=== PATIENT | female | born 1975 | race African-American/Black ===

== ENCOUNTER 2018-04-11 17:05 | Observation (INO) ==
[2018-04-11 17:57] LABS: BILIRUBIN,URINE NEGATIVE (NEGATIVE); BLOOD/HEMOGLOBIN,URINE 2+ (NEGATIVE); GLUCOSE, URINE NEGATIVE (NEGATIVE); KETONES,URINE NEGATIVE (NEGATIVE); LEUKOCYTE ESTERASE ,URINE NEGATIVE (NEGATIVE); NITRITES,URINE NEGATIVE (NEGATIVE); PROTEIN,URINE NEGATIVE (NEGATIVE); UROBILINOGEN,URINE NORMAL (NORMAL)
[2018-04-11 18:08] LABS: APPEARANCE,URINE CLEAR (CLEAR); COLOR,URINE YELLOW (YELLOW)
[2018-04-11 18:09] LABS: BACTERIA,URINE TRACE /HPF (NEGATIVE); SQUAMOUS EPITHELIAL CELL,UR FEW /HPF (NEGATIVE)
[2018-04-11] MEDS ORDERED: TORADOL 60 MG VIAL IM ONE (18:12)
[2018-04-11] MEDS ORDERED: TORADOL 60 MG VIAL ONE (18:14)
--- NOTE | 2018-04-11 18:42 | CT ---
HISTORY: Low back pain, vomiting Study: CT abdomen and pelvis without contrast Comparison: None Technique: Multiple axial images of the abdomen and pelvis were obtained without IV contrast. Dose reduction techniques including Automated Exposure Control (AEC) and adjustment of mA and kV were utilized. Findings: Please note evaluation is limited without use of IV contrast. The visualized lung bases are clear. The liver, spleen, pancreas, and adrenal glands are unremarkable in their unenhanced CT appearance. Gallbladder is removed. No renal calculi or obstructive uropathy identified. No free intraperitoneal air. No evidence of intestinal obstruction or inflammation. Appendix is normal. No significant free fluid is identified. The soft tissues and osseous structures are unremarkable. Limited evaluation of vascular structures due to lack of contrast. No pathologically enlarged lymph nodes are identified. Uterus is mildly enlarged heterogeneous with suggestion of hypodense areas at the fundus. This to underlying fibroids, other uterine mass, versus endometrial thickening/fluid. IMPRESSION: 1. Mildly enlarged and heterogeneous appearance of the uterus with hypodense areas of the fundus. The findings could represent underlying endometrial thickening/fluid, fibroids or other uterine abnormality. Pelvic ultrasound may provide additional characterization. Reported By:
--- NOTE | 2018-04-11 18:57 | DR.FBACK ---
HPI Time Seen Time Seen by Provider: 04/11/18 18:09 PCP Primary Care Physician: JOSE Complaint Chief Complaint:: PT C/O LOWER BACK PAIN. PT STATES SHE HAS A BAD BACK AND SHE HAS HAD THIS SIMILAR PAIN IN THE PAST WHE SHE WAS CONTSTIPATED PT STATES SHE HAS NOT HAD A BM IN 1 WEEK AND SHE HAS BEEN VOMITTING. PT STATES SHE HAS BEEN LAYING IN THE FLOOR AT HER HOUSE FOR THE PAST 4 DAYS IN SEVERE PAIN. 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 Family History History of Family Medical Conditions: Yes Family Medical History: Diabetes Mellitus, Cancer and Hypertension Social History Does patient currently use any type of tobacco product: Yes Have you used tobacco products in the last 12 months: Yes Type of Tobacco Use: Cigarettes Does any household member use tobacco: Yes Alcohol Use: Occasionally Do you use any recreational Drugs:: Yes (THC) Lives With: Alone Lives Where: Home infectious screening In the last 2 months have you had wt loss of >10#?: NO Have you had fever, night sweats or hemotysis?: No Have you traveled outside the country in the last 6 months?: No Isolation: Standard PE Vitals Vital Signs: Temp Pulse Resp BP BP Pulse Ox 04/11/18 22:33 142/83 04/11/18 19:49 167/111 04/11/18 18:02 149/110 04/11/18 17:54 142/82 04/11/18 17:05 96.8 F L 113 H 20 206/128 99 02/22/18 11:32 151/81 151/81 General Limitations: No Limitations General Appearance: Alert, In No Apparent Distress and Anxious Head Head Exam: Normal Inspection, Atraumatic and Normocephalic Eyes Eye exam: Normal Appearance, PERRL and EOMI ENT ENT Exam: Normal Exam, Normal Oropharynx and Normal External Ear Exam Chest Chest Inspection: Normal Inspection and Symmetric Chest Wall Rise Cardiovascular Cardiovascular Exam: Regular Rate and Normal Rhythm Abdominal Exam Abdominal Exam: Normal Inspection, Normal Bowel Sounds and Soft Genitourinary External Exam: Female: Deferred : Speculum Exam (Female): Deferred : Bimanual Exam (female): Deferred Extremities Extremities Exam: Normal Inspection and Full ROM Back Back Exam: Normal Inspection ROR Labs Reviewed Laboratory: Specimen Type Clean catch urine 04/11/18 17:53 Urine Color Yellow (YELLOW) 04/11/18 17:53 Urine Appearance Clear (CLEAR) 04/11/18 17:53 Urine pH 6.0 (5.0 - 8.0) 04/11/18 17:53 Ur Specific [place] 1.020 (1.000-1.030) 04/11/18 17:53 Urine Protein Negative (NEGATIVE) 04/11/18 17:53 Urine Glucose (UA) Negative (NEGATIVE) 04/11/18 17:53 Urine Ketones Negative (NEGATIVE) 04/11/18 17:53 Urine Occult Blood 2+ (NEGATIVE) 04/11/18 17:53 Urine Nitrite Negative (NEGATIVE) 04/11/18 17:53 Urine Bilirubin Negative (NEGATIVE) 04/11/18 17:53 Urine Urobilinogen Normal (NORMAL) 04/11/18 17:53 Ur Leukocyte Esterase Negative (NEGATIVE) 04/11/18 17:53 Urine RBC 3-5 /HPF (NONE SEEN) 04/11/18 17:53 Urine WBC None seen /HPF (NONE SEEN) 04/11/18 17:53 Ur Squamous Epith Cells Few /HPF (NEGATIVE) 04/11/18 17:53 Urine Bacteria Trace /HPF (NEGATIVE) 04/11/18 17:53 Ur Culture Indicated? No/not indicated 04/11/18 17:53
--- NOTE | 2018-04-11 20:30 | US ---
HISTORY: Pelvic pain and pelvic mass. Exam: Diagnostic transvaginal pelvic ultrasound examination. Comparison: Abdominopelvic CT examination dated 04/11/2018. Technique: Grayscale and Doppler images of the pelvis were performed. Findings: The exam demonstrates a normal size uterus, measuring 7 x 6 x 6 cm. However, there is a rounded, hypoechoic, uterine mass which projects into the endometrial cavity, measuring 36 x 21 x 30 mm. This could reflect a true endometrial mass and endometrial hyperplasia or carcinoma could account for this finding. However, this could also reflect a large endometrial polyp or uterine fibroid which is protruding into the endometrial cavity. There is an additional hypoechoic mass seen in the lower fundus of the uterus which measures 18 x 12 mm with posterior shadowing which has the appearance of fibroid. Recommend follow-up MRI imaging of the pelvis with IV contrast for improved inspection of these 2 masses when clinically possible. Ultimately, women specialist consultation and hysteroscopy may be required for definitive diagnosis and to exclude a malignancy. The ovaries are unremarkable bilaterally on this examination. The right ovary measures 19 x 14 x 19 mm. The left ovary measures 15 x 10 x 25 mm. No complex fluid collection or other abnormality is seen. Impression: Abnormal pelvic ultrasound examination; please see above discussion. Reported By:
[2018-04-11] MEDS ORDERED: DEMEROL INJ IVP ONE (22:05)
[2018-04-11] MEDS ORDERED: ZOFRAN INJ 4 MG VIAL IVP PRN (22:26)
[2018-04-11] MEDS: NS 1000 ML 1,000 ML IV SCH (23:37)
[2018-04-12 00:40] VITALS: BMI 21.6
[2018-04-12 05:26] LABS: ALANINE AMINOTRANSFERASE 21 Units/L (12-78); ALBUMIN 3.1 g/dL (3.4-5.0); ALKALINE PHOSPHATASE 46 Units/L (46-116); ASPARTATE AMINO TRANSFERASE 11 Units/L (15-37); BLOOD UREA NITROGEN 8 mg/dL (7-18); CARBON DIOXIDE 24.5 mmol/L (21-32); CHLORIDE 106 mmol/L (98-107); COR CA(FOR HYPOALB) 8.7 mg/dL (8.5-10.1); CREATININE 0.68 mg/dL (0.55-1.02); SODIUM 140 mmol/L (136-145); TOTAL PROTEIN 6.6 g/dL (6.4-8.2); eGFR NON BLACK RACES > 60 (>60)
[2018-04-12 06:10] LABS: BASOPHILS # (AUTO) 0.1 X10^3/uL (0.0-0.1); BASOPHILS % (AUTO) 0.7 % (0.2-1.0); EOSINOPHILS # (AUTO) 0.2 x10^3/uL (0.0-0.2); EOSINOPHILS % (AUTO) 2.4 % (0.9-2.9); HEMATOCRIT 38.2 % (36.0-47.0); HEMOGLOBIN 12.9 g/dL (12.0-16.0); LYMPHOCYTES # (AUTO) 3.7 X10^3/uL (1.3-2.9); LYMPHOCYTES % (AUTO) 42.5 % (21.0-51.0); MEAN CORPUSCULAR HEMOGLOBIN 26.7 pg (27.0-34.0); MEAN CORPUSCULAR HGB CONC 33.7 g/dL (33.0-35.0); MEAN CORPUSCULAR VOLUME 79.3 fL (80.0-100.0); MEAN PLATELET VOLUME 10.2 fL (7.4-11.0); MONOCYTES # (AUTO) 0.8 x10^3/uL (0.3-0.8); NEUTROPHILS % (AUTO) 45.4 % (42.0-75.0); PLATELET COUNT 120 X10^3/uL (150.0-450.0); RED BLOOD COUNT 4.82 X10^6/uL (3.5-5.4); RED CELL DISTRIBUTION WIDTH 13.7 % (11.6-16.5); WHITE BLOOD COUNT 8.8 X10^3/uL (3.6-10.0)
[2018-04-12] MEDS ORDERED: KLOR-CON PO PRN (06:54)
[2018-04-12] MEDS ORDERED: MICRO K EXTEN CAP 10 MEQ PO PRN (06:54)
[2018-04-12] MEDS ORDERED: POTASSIUM CHLORIDE LIQ 20 MEQ UDC PO PRN (06:54)
[2018-04-12] MEDS ORDERED: K-RIDER 10 MEQ/NS 100 ML 10 MEQ/100 ML BAG IV PRN (06:54)
[2018-04-12] MEDS ORDERED: POTASSIUM CHL 40 MEQ/NS 0.45% 500 ML IV PRN (06:54)
[2018-04-12] MEDS ORDERED: POTASSIUM CHL 60 MEQ/NS 0.45% 500 ML IV PRN (06:54)
[2018-04-12] MEDS: MAGNESIUM SULFATE 1 GRAM/100 mL PREMIX 1 GM/100 ML BAG IV PRN ×2 (07:36→08:37)
[2018-04-12] MEDS: K-DUR TAB 20 MEQ PO PRN (10:22)
[2018-04-12] MEDS: DEMEROL INJ IVP PRN ×3 (10:25→23:12)
[2018-04-12] MEDS ORDERED: PREVNAR 13 IM ONE (11:56)
[2018-04-12] MEDS ORDERED: FLUVIRIN IM ONE (11:56)
[2018-04-12] MEDS ORDERED: PNEUMOVAX 23 IM ONE (13:00)
[2018-04-12] MEDS: NS 1000 ML 1,000 ML IV SCH (13:20)
[2018-04-12] MEDS: NORCO 5/325 MG TAB PO PRN (20:34)
--- NOTE | 2018-04-12 20:49 | MRI ---
MRI OF THE PELVIS WITHOUT AND WITH IV CONTRAST Clinical indication: Pelvic pain and possible pelvic mass Procedure: Multiplanar multi sequence MRI of the pelvis was obtained with and without the administration of intravenous contrast according to standard departmental protocol. Comparisons: Ultrasound 04/11/2018, CT 04/11/2018 Findings: The uterus measures 6.9 x 5.3 x 5.2 cm. The endometrial stripe is difficult to measure given its distortion by what appears to be at least 1 mass that is within the uterine cavity. This mass measures approximately 2.8 x 2.4 cm. There is layering T2 dark, T1 bright material. There is some peripheral enhancement but no central enhancement there is a no other region of similar signal characteristics that appears to extend along the left uterine fundus towards the isthmus of the fallopian tube. The prostate is normal in size and without focal signal abnormality. No free fluid in the pelvis. Distal ureters are normal. Visualized bowel is without inflammation or obstruction. No aggressive osseous lesions. Impression: 1. Findings as above which are most consistent with hemorrhage within the uterine canal (hematometrium/hematometra). There appears to be some septation with some hemorrhage also extending into the isthmus of the left fundus. No definite enhancing masses. This would correlate with recent ultrasound findings however flow images were not provided on the ultrasound to corroborate that this is not a soft tissue mass. This finding raises some concern for cervical stenosis particularly at the internal os. Correlate with any history of instrumentation of the uterus. Additional differential consideration could be degenerating submucosal fibroids. 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 Reported By:
[2018-04-13] MEDS: NORCO 5/325 MG TAB PO PRN ×2 (02:05→13:31)
[2018-04-13] MEDS: NS 1000 ML 1,000 ML IV SCH ×2 (03:22→06:00)
[2018-04-13] MEDS: DEMEROL INJ IVP PRN (03:42)
[2018-04-13 06:05] LABS: BASOPHILS % (AUTO) 0.4 % (0.2-1.0); EOSINOPHILS # (AUTO) 0.1 x10^3/uL (0.0-0.2); EOSINOPHILS % (AUTO) 1.5 % (0.9-2.9); HEMATOCRIT 36.5 % (36.0-47.0); HEMOGLOBIN 12.1 g/dL (12.0-16.0); LYMPHOCYTES # (AUTO) 2.8 X10^3/uL (1.3-2.9); LYMPHOCYTES % (AUTO) 33.4 % (21.0-51.0); MEAN CORPUSCULAR HEMOGLOBIN 26.6 pg (27.0-34.0); MEAN CORPUSCULAR HGB CONC 33.2 g/dL (33.0-35.0); MEAN CORPUSCULAR VOLUME 80.2 fL (80.0-100.0); MEAN PLATELET VOLUME 10.6 fL (7.4-11.0); MONOCYTES # (AUTO) 0.8 x10^3/uL (0.3-0.8); MONOCYTES % (AUTO) 9.3 % (0.0-13.0); NEUTROPHILS # (AUTO) 4.6 x10^3/uL (2.2-4.8); NEUTROPHILS % (AUTO) 55.4 % (42.0-75.0); PLATELET COUNT 102 X10^3/uL (150.0-450.0); RED BLOOD COUNT 4.55 X10^6/uL (3.5-5.4); WHITE BLOOD COUNT 8.4 X10^3/uL (3.6-10.0)
[2018-04-13 06:29] LABS: ALANINE AMINOTRANSFERASE 22 Units/L (12-78); ALBUMIN 3.1 g/dL (3.4-5.0); ALKALINE PHOSPHATASE 44 Units/L (46-116); ASPARTATE AMINO TRANSFERASE 11 Units/L (15-37); BLOOD UREA NITROGEN 6 mg/dL (7-18); CALCIUM 7.8 mg/dL (8.5-10.1); CARBON DIOXIDE 25.5 mmol/L (21-32); CHLORIDE 105 mmol/L (98-107); COR CA(FOR HYPOALB) 8.5 mg/dL (8.5-10.1); CREATININE 0.67 mg/dL (0.55-1.02); MAGNESIUM 1.7 mg/dL (1.7-2.9); SODIUM 139 mmol/L (136-145); TOTAL PROTEIN 6.4 g/dL (6.4-8.2); eGFR NON BLACK RACES > 60 (>60)
--- NOTE | 2018-04-13 08:20 | DR.H&P ---
H&P - History & Physical for Day of: H&P Date: 04/11/18 - Chief Complaint Chief Complaint: lower back pain, constipation - History of Present Illness History of Present Illness: PT IS 42 BF ER ADMISSION WITH CO INTRACTABLE LBP, PT HAS CO CONSTIPATION. PT HAS PMH OF LSPINE DDD, PREVIOSLY ON PAIN CONTROL, LAST MRI OVER ONE YEAR AGO. PT HAD CT ABD/PELVIS IN ER WITH ABNORMAL UTERINE FINDINGS. PT WAS ADMITTED FOR PAIN CONTROL AND EVALUATION OF INTRACTABLE LOWER BACK PAIN. 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 - Family History Family Medical History: Diabetes Mellitus, Cancer, Hypertension - Social History Does patient currently use any type of tobacco product: Yes Have you used tobacco products in the last 12 months: Yes Type of Tobacco Use: Cigarettes How many years tobacco product used: 5 Does any household member use tobacco: Yes Alcohol Use: Occasionally Drug Use: None - Medications Home Medications: No Known Drug Allergies Allergy (Verified 04/11/18 22:30) CONTINUE taking the following medications NK 04/11/18 [History] - Review of Systems Constitutional: No Symptoms Reported ENT: No Symptoms Reported Respiratory: No Symptoms Reported Cardiovascular: No Symptoms Reported Gastrointestinal: Constipation Musculoskeletal: Back Pain Skin: No Symptoms Reported Neurological: No Symptoms Reported - Physical Exam Vital Signs: Temperature 97.7 F Pulse Rate 58 Respiratory Rate 16 Blood Pressure [Left Arm] 142/83 Blood Pressure 136/99 O2 Sat by Pulse Oximetry 100 Oriented: Normal Eyes: Normal Ear: Normal Nose: Normal Throat: Normal Respiratory: RLL Diminished, LLL Diminished : Normal Auscultation: Bowel Sounds: Normal Palpation: Normal Tenderness: Normal, Suprapubic, Mild Skin: Normal Musculoskeletal: Back:Thoracic, Back:Lumbar, Tender Psychiatric: Anxiety Mood Description: Anxious Affect: Anxious Speech Pattern: Clear, Appropriate - Assessment/Plan (1) Pelvic mass Status: Acute Plan: ADMIT, PAIN CONTROL. MRI PELVIS. 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
[2018-04-13] MEDS ORDERED: TORADOL 15 MG VIAL IVP ONE (08:22)
--- NOTE | 2018-04-13 08:37 | DR.FBACK ---
HPI Time Seen Time Seen by Provider: 04/11/18 18:09 PCP Primary Care Physician: JOSE Complaint Chief Complaint:: PT C/O LOWER BACK PAIN. PT STATES SHE HAS A BAD BACK AND SHE HAS HAD THIS SIMILAR PAIN IN THE PAST WHE SHE WAS CONTSTIPATED PT STATES SHE HAS NOT HAD A BM IN 1 WEEK AND SHE HAS BEEN VOMITTING. PT STATES SHE HAS BEEN LAYING IN THE FLOOR AT HER HOUSE FOR THE PAST 4 DAYS IN SEVERE PAIN. 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 Family History History of Family Medical Conditions: Yes Family Medical History: Diabetes Mellitus, Cancer and Hypertension Social History Does patient currently use any type of tobacco product: Yes Have you used tobacco products in the last 12 months: Yes Type of Tobacco Use: Cigarettes How many years tobacco product used: 5 Does any household member use tobacco: Yes Alcohol Use: Occasionally Do you use any recreational Drugs:: Yes (THC) Lives With: Alone Lives Where: Home infectious screening In the last 2 months have you had wt loss of >10#?: NO Have you had fever, night sweats or hemotysis?: No Have you traveled outside the country in the last 6 months?: No Isolation: Standard PE Vitals Vital Signs: Temp Pulse Resp BP BP Pulse Ox 04/13/18 08:05 58 L 16 136/99 100 04/13/18 08:00 54 L 26 H 100 04/13/18 07:45 65 25 H 100 04/13/18 07:30 61 28 H 100 04/13/18 07:15 67 24 100 04/13/18 07:00 56 L 12 99 04/13/18 06:00 60 24 128/83 100 04/13/18 04:00 97.7 F 54 L 22 134/90 100 04/13/18 00:00 97.6 F 52 L 25 H 151/99 100 04/12/18 22:00 61 24 141/93 99 04/12/18 20:00 98.1 F 60 22 131/91 100 04/12/18 14:00 57 L 13 132/87 100 04/12/18 12:00 98.0 F 60 22 120/78 100 04/12/18 08:00 97.7 F 55 L 19 113/68 100 04/12/18 06:00 58 L 114/64 100 04/12/18 05:00 52 L 129/81 100 04/12/18 04:00 98.5 F 54 L 15 105/72 100 04/12/18 03:00 55 L 16 113/77 100 04/12/18 02:00 55 L 18 110/67 100 04/12/18 01:00 59 L 20 114/73 100 04/12/18 00:00 97.9 F 55 L 17 114/69 100 04/11/18 23:00 60 24 143/90 100 04/11/18 22:33 142/83 04/11/18 19:49 167/111 04/11/18 18:02 149/110 04/11/18 17:54 142/82 04/11/18 17:05 96.8 F L 113 H 20 206/128 99 02/22/18 11:32 151/81 151/81 General Limitations: No Limitations General Appearance: Alert and In No Apparent Distress Head Head Exam: Normal Inspection, Atraumatic and Normocephalic Eyes Eye exam: Normal Appearance, PERRL and EOMI ENT ENT Exam: Normal Exam, Normal Oropharynx and Normal External Ear Exam Respiratory Respiratory Exam: Normal Lung Sounds Bilat and Accessory Muscle Use Respiratory Exam: Bilateral: Clear to Auscultation Cardiovascular Cardiovascular Exam: Regular Rate and Normal Rhythm Abdominal Exam Abdominal Exam: Normal Inspection, Normal Bowel Sounds and Soft Genitourinary External Exam: Female: Deferred : Bimanual Exam (female): Deferred Extremities Extremities Exam: Full ROM Back Back Exam: Normal Inspection, Full ROM, Tenderness (lumbar spine) and (L) CVA Tenderness Neurological Neurological Exam: Alert and Oriented X3 Psychiatric Psychiatric Exam: Normal Affect and Normal Mood Skin Skin Exam: Warm, Dry and Intact COURSE Treatment Treatment: Patient received several doses of analgesics for pain management during workup. Several radiographic studies ultimately done for evaluation. ROR Labs Reviewed Laboratory Results Reviewed?: Yes Result Diagrams: 04/13/18 05:16 04/13/18 05:16 Laboratory: WBC 8.4 X10^3/uL (3.6-10.0) 04/13/18 05:16 RBC 4.55 X10^6/uL (3.5-5.4) 04/13/18 05:16 Hgb 12.1 g/dL (12.0-16.0) 04/13/18 05:16 Hct 36.5 % (36.0-47.0) 04/13/18 05:16 MCV 80.2 fL (80.0-100.0) 04/13/18 05:16 MCH 26.6 pg (27.0-34.0) L 04/13/18 05:16 MCHC 33.2 g/dL (33.0-35.0) 04/13/18 05:16 RDW 14.0 % (11.6-16.5) 04/13/18 05:16 Plt Count 102 X10^3/uL (150.0-450.0) L 04/13/18 05:16 MPV 10.6 fL (7.4-11.0) 04/13/18 05:16 Neut % (Auto) 55.4 % (42.0-75.0) 04/13/18 05:16 Lymph % (Auto) 33.4 % (21.0-51.0) 04/13/18 05:16 [place] % (Auto) 9.3 % (0.0-13.0) 04/13/18 05:16 Eos % (Auto) 1.5 % (0.9-2.9) 04/13/18 05:16 Baso % (Auto) 0.4 % (0.2-1.0) 04/13/18 05:16 Neut # (Auto) 4.6 x10^3/uL (2.2-4.8) 04/13/18 05:16 Lymph # (Auto) 2.8 X10^3/uL (1.3-2.9) 04/13/18 05:16 [place] # (Auto) 0.8 x10^3/uL (0.3-0.8) 04/13/18 05:16 Eos # (Auto) 0.1 x10^3/uL (0.0-0.2) 04/13/18 05:16 Baso # (Auto) 0.0 X10^3/uL (0.0-0.1) 04/13/18 05:16 Absolute Nucleated RBC 0.0 /100WBC 04/13/18 05:16 Sodium 139 mmol/L (136-145) 04/13/18 05:16 Corrected Sodium TNP 04/13/18 05:16 Potassium 3.7 mmol/L (3.5-5.1) 04/13/18 05:16 Chloride 105 mmol/L (98-107) 04/13/18 05:16 Carbon Dioxide 25.5 mmol/L (21-32) 04/13/18 05:16 BUN 6 mg/dL (7-18) L 04/13/18 05:16 Creatinine 0.67 mg/dL (0.55-1.02) 04/13/18 05:16 Est GFR (MDRD) Af Amer > 60 (>60) 04/13/18 05:16 Est GFR (MDRD) Non-Af > 60 (>60) 04/13/18 05:16 Glucose 96 mg/dL (65-99) 04/13/18 05:16 Calcium 7.8 mg/dL (8.5-10.1) L 04/13/18 05:16 Corrected Calcium 8.5 mg/dL (8.5-10.1) 04/13/18 05:16 Magnesium 1.7 mg/dL (1.7-2.9) 04/13/18 05:16 Total Bilirubin 0.10 mg/dL (0.2-1.0) L 04/13/18 05:16 AST 11 Units/L (15-37) L 04/13/18 05:16 ALT 22 Units/L (12-78) 04/13/18 05:16 Alkaline Phosphatase 44 Units/L (46-116) L 04/13/18 05:16 Total Protein 6.4 g/dL (6.4-8.2) 04/13/18 05:16 Albumin 3.1 g/dL (3.4-5.0) L 04/13/18 05:16 Globulin 3.3 g/dL (2.5-4.5) 04/13/18 05:16 Albumin/Globulin Ratio 0.9 Ratio (1.1-2.1) L 04/13/18 05:16 Specimen Type Clean catch urine 04/11/18 17:53 Urine Color Yellow (YELLOW) 04/11/18 17:53 Urine Appearance Clear (CLEAR) 04/11/18 17:53 Urine pH 6.0 (5.0 - 8.0) 04/11/18 17:53 Ur Specific [place] 1.020 (1.000-1.030) 04/11/18 17:53 Urine Protein Negative (NEGATIVE) 04/11/18 17:53 Urine Glucose (UA) Negative (NEGATIVE) 04/11/18 17:53 Urine Ketones Negative (NEGATIVE) 04/11/18 17:53 Urine Occult Blood 2+ (NEGATIVE) 04/11/18 17:53 Urine Nitrite Negative (NEGATIVE) 04/11/18 17:53 Urine Bilirubin Negative (NEGATIVE) 04/11/18 17:53 Urine Urobilinogen Normal (NORMAL) 04/11/18 17:53 Ur Leukocyte Esterase Negative (NEGATIVE) 04/11/18 17:53 Urine RBC 3-5 /HPF (NONE SEEN) 04/11/18 17:53 Urine WBC None seen /HPF (NONE SEEN) 04/11/18 17:53 Ur Squamous Epith Cells Few /HPF (NEGATIVE) 04/11/18 17:53 Urine Bacteria Trace /HPF (NEGATIVE) 04/11/18 17:53 Ur Culture Indicated? No/not indicated 04/11/18 17:53 Other Results Comments: CT ABD/PEL:Mildly enlarged and heterogeneous appearance of the uterus with hypodense areas of the fundus. The findings could represent underlying endometrial thickening/fluid,fibroids or other uterine abnormality. Pelvic ultrasound may provide additional characterization. Transvaginal Ultrasound: The exam demonstrates a normal size uterus, measuring 7x6x6. Howev er, there is a rounded, hypoechoic, uterine mass which projects into the endometrial cavity, measuring [id number]. This could reflect a true endometrial mass and endometrial hyperplasis or carcinoma could account for this finding. However; this could also reflect a large endometrial polyp or uterine fibroid which is protruding into the endometrial cavity. There is an additional hypoechoic mass seen in the lower fundus of the uterus which measures [id number] with posterior shadowing which has the appearance of fibroid. Recommend follow follow-up MRI imaging of the pelvis with IV contrast for improved inspection of these 2 masses when clinically possible. Ultimately, ObGYN consultation and hys terosciop may be required for definite diagnosis and in exclude a malignancy. The ovaries are unremarkable bilaterally on this examination. The right ovary measures [id number]. The left ovary measures [id number]. No complex fluid collection or other abnormality is seen. Procedures Procedure Comments Procedures: Patient received pain management and had several radiographic procedures ADDITIONAL NOTES Additional Notes Additional Notes: Dr Mccloud agreed to admit for further evaluation of this pelvic mass.
[2018-04-13] MEDS ORDERED: FLEXERIL TAB 10 MG PO SCH (09:00)
[2018-04-13] MEDS ORDERED: SOLU-Medrol 40 MG VIAL IVP SCH (09:00)
[2018-04-13] MEDS: K-DUR TAB 20 MEQ PO PRN (09:26)
--- NOTE | 2018-04-13 09:55 | RAD ---
History: Low back pain Study: Five views of the lumbar spine Comparison: None Findings: There is normal alignment without fracture or compression or disc space narrowing or marginal osteophyte formation. The facet joints and sacroiliac joints are unremarkable. Impression: Negative Reported By:
[2018-04-13 12:33] VITALS: BP 152/101
== END 2018-04-13 14:15 | disposition home or self-care (01) ==
LOC: ER 17:05 → ICU 17:05
PROVIDERS: ADMIT Internal Medicine; ATTEND Internal Medicine
DX: F41.8 Other specified anxiety disorders; R10.2 Pelvic and perineal pain; R19.09 Other intra-abdominal and pelvic swelling, mass and lump; N85.2 Hypertrophy of uterus; Z23 Encounter for immunization; M54.5 Low back pain; K59.09 Other constipation
CPT/HCPCS: 36415; 72110; 72197; 74176; 76856; 80053; 81001; 83735; 85025; 90686; 96365; 96367; 96372; 96374; 99283; 99284; A4222; G0378; J1885; J2175; J2405; J2920; J3475; J7030; S0195